=== PATIENT | female | born 1975 | race Caucasian/White ===

== ENCOUNTER 2016-11-03 11:52 | Inpatient (IN) | payer MEDICARE, MEDICAID ==
[~2016-11-03] VITALS: Ht 165.1 cm; Wt 69.9 kg
[~2016-11-03 11:52] MED LIST: DIVA500T35 PO; GABA-531 PO; RISP2 PO; RISPC50 IM
[2016-11-03 12:39] VITALS: BP 143/86
[2016-11-03] MEDS ORDERED: INFLUENZA VIRUS VACCINE QVS 2016-17 (3YR+)/PF 60 MCG/0.5 ML SYRINGE IM ONE (12:45)
[2016-11-03] MEDS ORDERED: LORazepam 1 MG TABLET PO PRN (13:30)
[2016-11-03] MEDS ORDERED: ZOLPIDEM TARTRATE 10 MG TABLET PO PRN (13:30)
[2016-11-03] MEDS: GABAPENTIN 300 MG CAPSULE PO SCH ×2 (14:25→16:28)
[2016-11-03 15:15] VITALS: BP 121/73
[2016-11-03] MEDS: RisperiDONE 2 MG TABLET PO SCH (20:12)
[2016-11-03] MEDS ORDERED: DIVALPROEX SODIUM 500 MG DR TABLET PO SCH (21:00)
[2016-11-04] MEDS: GABAPENTIN 300 MG CAPSULE PO SCH ×3 (08:05→16:43)
[2016-11-04] MEDS: RisperiDONE 2 MG TABLET PO SCH (08:05)
[2016-11-04 09:13] LABS: BASOPHILS % (AUTO) 0.3 % (0.0-2.0); EOSINOPHILS % (AUTO) 1.1 % (1.0-6.0); HEMATOCRIT 40.6 % (36-46); HEMOGLOBIN 13.3 g/dL (12.0-16.0); LYMPHOCYTES # (AUTO) 2.3 K/uL (1.0-4.8); LYMPHOCYTES % (AUTO) 27.9 % (22.0-44.0); MEAN CORPUSCULAR HEMOGLOBIN 32.7 pg (26.0-34.0); MEAN CORPUSCULAR HGB CONC 32.8 G/dL (31.0-37.0); MEAN CORPUSCULAR VOLUME 100 fL (80-100); MONOCYTES # (AUTO) 0.6 K/uL (0.1-1.0); MONOCYTES % (AUTO) 6.9 % (2.0-9.0); NEUTROPHILS # (AUTO) 5.3 K/uL (1.8-7.7); NEUTROPHILS % (AUTO) 63.8 % (40.0-70.0); PLATELET COUNT (AUTO) 286 K/uL (150-450); RED BLOOD CELL COUNT(AUTO) 4.07 MIL/uL (4.00-5.20); RED CELL DISTRIBUTION WIDTH 12.7 % (11.5-14.5); WHITE BLOOD COUNT (AUTO) 8.3 K/uL (4.5-11.0)
[2016-11-04 09:52] LABS: HEMOGLOBIN A1C 5.5 % (4.5-6.2)
[2016-11-04 10:50] LABS: ALANINE AMINOTRANSFERASE 24 U/L (12-78); ALBUMIN 3.5 g/dL (3.4-5.0); ANION GAP 11 mmol/L (8-16); ASPARTATE AMINOTRANSFERASE 16 U/L (15-37); BILIRUBIN,TOTAL 0.4 mg/dL (0.1-1.0); CALCIUM, TOTAL 9.4 mg/dL (8.8-10.5); CARBON DIOXIDE 25 mmol/L (22-29); CHLORIDE 105 mmol/L (98-107); CHOL/HDL RATIO 4.3 (3.9-5.7); CREATININE 0.78 mg/dL (0.60-1.30); GLOMERULAR FILTR. RATE CALC > 60 mL/min (>60); POTASSIUM 3.7 mmol/L (3.5-5.1); SODIUM SERUM 141 mmol/L (136-145); THYROID STIMULATING HORMONE 1.41 uIU/mL (0.36-3.74); TOTAL PROTEIN, SERUM 7.2 g/dL (6.4-8.2); UREA NITROGEN, BLOOD 15 mg/dL (7-18)
[2016-11-04 16:30] VITALS: BP 109/68
[2016-11-04] MEDS ORDERED: IBUPROFEN 400 MG TABLET PO PRN (18:00)
[2016-11-04] MEDS ORDERED: ACETAMINOPHEN 325 MG TABLET PO PRN (18:00)
[2016-11-04] MEDS: RisperiDONE 3 MG TABLET PO SCH (20:30)
[2016-11-05 05:50] VITALS: BP 119/76
[2016-11-05] MEDS: LEVOTHYROXINE SODIUM 25 MCG TABLET PO SCH (06:32)
[2016-11-05] MEDS: RisperiDONE 3 MG TABLET PO SCH ×2 (08:14→20:19)
[2016-11-05] MEDS: GABAPENTIN 300 MG CAPSULE PO SCH ×3 (08:14→16:32)
[2016-11-05 08:28] VITALS: BP 100/60
[2016-11-05 16:16] VITALS: BP 109/68
[2016-11-06] MEDS: LEVOTHYROXINE SODIUM 25 MCG TABLET PO SCH (06:46)
[2016-11-06 07:07] VITALS: BP 118/75
[2016-11-06] MEDS: RisperiDONE 3 MG TABLET PO SCH ×2 (08:17→20:17)
[2016-11-06] MEDS: GABAPENTIN 300 MG CAPSULE PO SCH ×3 (08:18→16:19)
[2016-11-07] MEDS: LEVOTHYROXINE SODIUM 25 MCG TABLET PO SCH (06:16)
[2016-11-07 09:06] VITALS: BP 84/56
[2016-11-07] MEDS: GABAPENTIN 300 MG CAPSULE PO SCH ×3 (09:58→16:27)
[2016-11-07] MEDS: RisperiDONE 3 MG TABLET PO SCH ×2 (09:59→20:46)
[2016-11-07 19:45] VITALS: BP 104/70
[2016-11-08] MEDS: LEVOTHYROXINE SODIUM 25 MCG TABLET PO SCH (06:30)
[2016-11-08] MEDS: GABAPENTIN 300 MG CAPSULE PO SCH ×3 (08:10→16:02)
[2016-11-08] MEDS: RisperiDONE 3 MG TABLET PO SCH ×2 (08:10→20:21)
[2016-11-09] MEDS: LEVOTHYROXINE SODIUM 25 MCG TABLET PO SCH (06:30)
[2016-11-09] MEDS: RisperiDONE 3 MG TABLET PO SCH (08:45)
[2016-11-09] MEDS: GABAPENTIN 300 MG CAPSULE PO SCH ×3 (08:45→16:11)
[2016-11-09] MEDS ORDERED: RisperiDONE MICROSPHERES 50 MG/2 ML SYRINGE IM ONE (09:00)
[2016-11-09 16:04] VITALS: BP 108/60
[2016-11-10] MEDS: LEVOTHYROXINE SODIUM 25 MCG TABLET PO SCH (06:15)
[2016-11-10] MEDS ORDERED: RISPC50 IM (08:00)
[2016-11-10] MEDS ORDERED: LEVO25TA4 PO (08:00)
[2016-11-10] MEDS: GABAPENTIN 300 MG CAPSULE PO SCH (08:12)
[2016-11-10 08:57] VITALS: BP 104/62
== END 2016-11-10 09:40 | disposition home or self-care (01) | DRG 885 ==
LOC: EDSTATUS 12:59 → B3A 13:39
DX: F20.0 Paranoid schizophrenia (principal); E78.5 Hyperlipidemia, unspecified; E03.9 Hypothyroidism, unspecified; E11.9 Type 2 diabetes mellitus without complications; F17.200 Nicotine dependence, unspecified, uncomplicated; Z28.21 Immunization not carried out because of patient refusal
CPT/HCPCS: 82948; 83036; 84439; 84443; J2794

== ENCOUNTER 2016-11-23 10:58 | Inpatient (IN) | payer MEDICARE, MEDICAID ==
[~2016-11-23] VITALS: Ht 165.1 cm; Wt 67.2 kg
[2016-11-23 10:34] VITALS: BP 138/89
[~2016-11-23 10:58] MED LIST changes: -DIVA500T35 PO; +LEVO25TA4 PO; -RISP2 PO
[2016-11-23 11:00] VITALS: BP 138/89
[2016-11-23] MEDS ORDERED: LORazepam 2 MG TABLET PO PRN (11:00)
[2016-11-23] MEDS ORDERED: INFLUENZA VIRUS VACCINE QVS 2016-17 (3YR+)/PF 60 MCG/0.5 ML SYRINGE IM ONE (11:00)
[2016-11-23] MEDS ORDERED: ZOLPIDEM TARTRATE 10 MG TABLET PO PRN (11:00)
[2016-11-23] MEDS ORDERED: HALOPERIDOL 5 MG TABLET PO PRN (11:00)
[2016-11-23] MEDS ORDERED: PNEUMOCOCCAL VACCINE POLYVALENT 0.5 ML VIAL [PPSV23] IM ONE (11:00)
[2016-11-23] MEDS ORDERED: LIDOCAINE HCL/PF 1% 2 ML VIAL IM ONE (14:15)
[2016-11-23] MEDS ORDERED: SULFAMETHOX/TRIMETH DS 800-160 MG/TABLET PO ONE (14:15)
[2016-11-23] MEDS ORDERED: CefTRIAXone SODIUM 1 GM/VIAL IM ONE (14:15)
[2016-11-23] MEDS ORDERED: GABAPENTIN 300 MG CAPSULE PO SCH (16:00)
[2016-11-23 16:04] VITALS: BP 120/75
[2016-11-23 16:56] LABS: GLUCOSE,POINT OF CARE 120 MG/DL (70-110)
[2016-11-23] MEDS: RisperiDONE 2 MG TABLET PO SCH (17:43)
[2016-11-23] MEDS: GABAPENTIN 300 MG CAPSULE PO SCH (17:44)
[2016-11-23] MEDS ORDERED: RisperiDONE 2 MG TABLET PO SCH (21:00)
[2016-11-24] MEDS ORDERED: ACETAMINOPHEN 325 MG TABLET PO PRN (06:00)
[2016-11-24] MEDS ORDERED: IBUPROFEN 400 MG TABLET PO PRN (06:00)
[2016-11-24] MEDS ORDERED: LEVOTHYROXINE SODIUM 25 MCG TABLET PO SCH (06:30)
[2016-11-24] MEDS: LEVOTHYROXINE SODIUM 25 MCG TABLET PO SCH (07:22)
[2016-11-24] MEDS: GABAPENTIN 300 MG CAPSULE PO SCH ×3 (08:43→17:00)
[2016-11-24] MEDS: RisperiDONE 2 MG TABLET PO SCH ×2 (08:44→17:00)
[2016-11-24 16:17] VITALS: BP 109/71
[2016-11-24] MEDS: BACITRACIN 28.4 GM OINTMENT TP SCH (19:37)
[2016-11-25] MEDS: LEVOTHYROXINE SODIUM 25 MCG TABLET PO SCH (06:30)
[2016-11-25 08:02] VITALS: BP 115/60
[2016-11-25] MEDS ORDERED: BACITRACIN 28.4 GM OINTMENT TP SCH (09:00)
[2016-11-25] MEDS: GABAPENTIN 300 MG CAPSULE PO SCH ×3 (09:24→16:26)
[2016-11-25] MEDS: RisperiDONE 2 MG TABLET PO SCH ×2 (09:24→16:26)
[2016-11-25] MEDS: BACITRACIN 28.4 GM OINTMENT TP SCH ×2 (09:25→16:26)
[2016-11-25 09:39] LABS: BASOPHILS % (AUTO) 0.2 % (0.0-2.0); EOSINOPHILS % (AUTO) 0.6 % (1.0-6.0); HEMATOCRIT 39.8 % (36-46); HEMOGLOBIN 13.2 g/dL (12.0-16.0); LYMPHOCYTES # (AUTO) 1.9 K/uL (1.0-4.8); LYMPHOCYTES % (AUTO) 18.3 % (22.0-44.0); MEAN CORPUSCULAR HEMOGLOBIN 32.9 pg (26.0-34.0); MEAN CORPUSCULAR HGB CONC 33.3 G/dL (31.0-37.0); MEAN CORPUSCULAR VOLUME 99 fL (80-100); MONOCYTES # (AUTO) 0.5 K/uL (0.1-1.0); MONOCYTES % (AUTO) 4.5 % (2.0-9.0); NEUTROPHILS % (AUTO) 76.4 % (40.0-70.0); PLATELET COUNT (AUTO) 309 K/uL (150-450); RED BLOOD CELL COUNT(AUTO) 4.02 MIL/uL (4.00-5.20); RED CELL DISTRIBUTION WIDTH 12.5 % (11.5-14.5); WHITE BLOOD COUNT (AUTO) 10.4 K/uL (4.5-11.0)
[2016-11-25 10:01] LABS: ALANINE AMINOTRANSFERASE 26 U/L (12-78); ALBUMIN 3.7 g/dL (3.4-5.0); ANION GAP 9 mmol/L (8-16); ASPARTATE AMINOTRANSFERASE 14 U/L (15-37); BILIRUBIN,TOTAL 0.4 mg/dL (0.1-1.0); CALCIUM, TOTAL 9.4 mg/dL (8.8-10.5); CARBON DIOXIDE 27 mmol/L (22-29); CHLORIDE 103 mmol/L (98-107); CHOL/HDL RATIO 4.7 (3.9-5.7); CREATININE 0.73 mg/dL (0.60-1.30); GLOMERULAR FILTR. RATE CALC > 60 mL/min (>60); POTASSIUM 4.7 mmol/L (3.5-5.1); SODIUM SERUM 139 mmol/L (136-145); THYROID STIMULATING HORMONE 0.32 uIU/mL (0.36-3.74); TOTAL PROTEIN, SERUM 7.4 g/dL (6.4-8.2); UREA NITROGEN, BLOOD 10 mg/dL (7-18)
[2016-11-25 10:17] LABS: HEMOGLOBIN A1C 5.5 % (4.5-6.2)
[2016-11-25 16:13] VITALS: BP 114/74
[2016-11-25] MEDS: NEOMYCIN/BACITRACIN/POLYMYXIN B 30 GM OINTMENT TP SCH (17:00)
[2016-11-25] MEDS: CEPHALEXIN MONOHYDRATE 500 MG CAPSULE PO SCH (17:24)
[2016-11-26] MEDS: LEVOTHYROXINE SODIUM 25 MCG TABLET PO SCH (06:11)
[2016-11-26] MEDS: GABAPENTIN 300 MG CAPSULE PO SCH ×3 (08:06→16:25)
[2016-11-26] MEDS: NEOMYCIN/BACITRACIN/POLYMYXIN B 30 GM OINTMENT TP SCH ×3 (08:07→16:26)
[2016-11-26] MEDS: BACITRACIN 28.4 GM OINTMENT TP SCH ×3 (08:07→16:26)
[2016-11-26] MEDS: RisperiDONE 2 MG TABLET PO SCH ×2 (08:07→16:25)
[2016-11-26] MEDS: CEPHALEXIN MONOHYDRATE 500 MG CAPSULE PO SCH ×3 (08:27→16:26)
[2016-11-26 16:22] VITALS: BP 109/68
[2016-11-27] MEDS: LEVOTHYROXINE SODIUM 25 MCG TABLET PO SCH (06:10)
[2016-11-27 06:29] VITALS: BP 115/75
[2016-11-27 08:02] VITALS: BP 112/62
[2016-11-27 08:30] VITALS: BP 112/62
[2016-11-27] MEDS: CEPHALEXIN MONOHYDRATE 500 MG CAPSULE PO SCH ×3 (09:26→16:02)
[2016-11-27] MEDS: GABAPENTIN 300 MG CAPSULE PO SCH ×3 (09:26→16:02)
[2016-11-27] MEDS: RisperiDONE 2 MG TABLET PO SCH ×2 (09:26→16:02)
[2016-11-27] MEDS: BACITRACIN 28.4 GM OINTMENT TP SCH ×2 (09:26→16:02)
[2016-11-27] MEDS: NEOMYCIN/BACITRACIN/POLYMYXIN B 30 GM OINTMENT TP SCH ×2 (09:26→16:02)
[2016-11-27] MEDS: RisperiDONE MICROSPHERES 50 MG/2 ML SYRINGE IM SCH (10:34)
[2016-11-27] MEDS: MULTIVITAMINS WITH MINERALS, THERAPEUTIC TABLET PO SCH (14:40)
[2016-11-27 16:09] VITALS: BP 127/78
[2016-11-28 00:49] VITALS: BP 104/70
[2016-11-28] MEDS: LEVOTHYROXINE SODIUM 25 MCG TABLET PO SCH (06:47)
[2016-11-28] MEDS: RisperiDONE 2 MG TABLET PO SCH ×2 (08:37→16:09)
[2016-11-28] MEDS: BACITRACIN 28.4 GM OINTMENT TP SCH ×2 (08:37→16:09)
[2016-11-28] MEDS: MULTIVITAMINS WITH MINERALS, THERAPEUTIC TABLET PO SCH (08:37)
[2016-11-28] MEDS: GABAPENTIN 300 MG CAPSULE PO SCH ×3 (08:37→16:09)
[2016-11-28] MEDS: CEPHALEXIN MONOHYDRATE 500 MG CAPSULE PO SCH ×3 (08:37→16:09)
[2016-11-28] MEDS: NEOMYCIN/BACITRACIN/POLYMYXIN B 30 GM OINTMENT TP SCH ×2 (08:38→16:09)
[2016-11-28 16:22] VITALS: BP 93/54
[2016-11-29] MEDS: LEVOTHYROXINE SODIUM 25 MCG TABLET PO SCH (06:12)
[2016-11-29 06:25] VITALS: BP 94/50
[2016-11-29] MEDS: MULTIVITAMINS WITH MINERALS, THERAPEUTIC TABLET PO SCH (08:39)
[2016-11-29] MEDS: CEPHALEXIN MONOHYDRATE 500 MG CAPSULE PO SCH ×3 (08:39→16:03)
[2016-11-29] MEDS: RisperiDONE 2 MG TABLET PO SCH ×2 (08:39→16:03)
[2016-11-29] MEDS: GABAPENTIN 300 MG CAPSULE PO SCH ×3 (08:39→16:03)
[2016-11-29] MEDS: BACITRACIN 28.4 GM OINTMENT TP SCH ×2 (08:41→16:03)
[2016-11-29] MEDS: NEOMYCIN/BACITRACIN/POLYMYXIN B 30 GM OINTMENT TP SCH ×2 (08:41→16:03)
[2016-11-29 16:08] VITALS: BP 95/59
[2016-11-30] MEDS: LEVOTHYROXINE SODIUM 25 MCG TABLET PO SCH (06:09)
[2016-11-30 08:10] VITALS: BP 109/70
[2016-11-30] MEDS: BACITRACIN 28.4 GM OINTMENT TP SCH ×2 (09:34→16:10)
[2016-11-30] MEDS: MULTIVITAMINS WITH MINERALS, THERAPEUTIC TABLET PO SCH (09:34)
[2016-11-30] MEDS: GABAPENTIN 300 MG CAPSULE PO SCH ×3 (09:34→16:10)
[2016-11-30] MEDS: CEPHALEXIN MONOHYDRATE 500 MG CAPSULE PO SCH ×3 (09:34→16:10)
[2016-11-30 16:30] VITALS: BP 104/58
[2016-12-01] MEDS: LEVOTHYROXINE SODIUM 25 MCG TABLET PO SCH (06:17)
[2016-12-01] MEDS: GABAPENTIN 300 MG CAPSULE PO SCH ×3 (08:18→16:10)
[2016-12-01] MEDS: CEPHALEXIN MONOHYDRATE 500 MG CAPSULE PO SCH ×3 (08:18→16:09)
[2016-12-01] MEDS: MULTIVITAMINS WITH MINERALS, THERAPEUTIC TABLET PO SCH (08:18)
[2016-12-01] MEDS: BACITRACIN 28.4 GM OINTMENT TP SCH ×2 (08:19→16:30)
[2016-12-01 08:34] VITALS: BP 107/59
[2016-12-02] MEDS: LEVOTHYROXINE SODIUM 25 MCG TABLET PO SCH (06:30)
[2016-12-02] MEDS: MULTIVITAMINS WITH MINERALS, THERAPEUTIC TABLET PO SCH (08:54)
[2016-12-02] MEDS: CEPHALEXIN MONOHYDRATE 500 MG CAPSULE PO SCH ×2 (08:54→12:47)
[2016-12-02] MEDS: GABAPENTIN 300 MG CAPSULE PO SCH ×3 (08:54→17:03)
[2016-12-02] MEDS: BACITRACIN 28.4 GM OINTMENT TP SCH ×2 (08:55→17:03)
[2016-12-03] MEDS: LEVOTHYROXINE SODIUM 25 MCG TABLET PO SCH (06:03)
[2016-12-03] MEDS: GABAPENTIN 300 MG CAPSULE PO SCH ×3 (08:06→16:26)
[2016-12-03] MEDS: BACITRACIN 28.4 GM OINTMENT TP SCH ×2 (08:06→17:03)
[2016-12-03] MEDS: MULTIVITAMINS WITH MINERALS, THERAPEUTIC TABLET PO SCH (08:06)
[2016-12-04] MEDS: LEVOTHYROXINE SODIUM 25 MCG TABLET PO SCH (06:21)
[2016-12-04] MEDS: GABAPENTIN 300 MG CAPSULE PO SCH ×3 (08:14→16:05)
[2016-12-04] MEDS: BACITRACIN 28.4 GM OINTMENT TP SCH ×2 (08:14→16:05)
[2016-12-04] MEDS: MULTIVITAMINS WITH MINERALS, THERAPEUTIC TABLET PO SCH (08:15)
[2016-12-05] MEDS: LEVOTHYROXINE SODIUM 25 MCG TABLET PO SCH (06:39)
[2016-12-05] MEDS: GABAPENTIN 300 MG CAPSULE PO SCH ×3 (08:01→16:23)
[2016-12-05] MEDS: MULTIVITAMINS WITH MINERALS, THERAPEUTIC TABLET PO SCH (08:01)
[2016-12-05] MEDS: BACITRACIN 28.4 GM OINTMENT TP SCH ×2 (08:02→16:23)
[2016-12-06] MEDS: LEVOTHYROXINE SODIUM 25 MCG TABLET PO SCH (06:06)
[2016-12-06] MEDS: MULTIVITAMINS WITH MINERALS, THERAPEUTIC TABLET PO SCH (08:14)
[2016-12-06] MEDS: BACITRACIN 28.4 GM OINTMENT TP SCH ×2 (08:14→16:27)
[2016-12-06] MEDS: GABAPENTIN 300 MG CAPSULE PO SCH ×3 (08:14→16:27)
[2016-12-07] MEDS: LEVOTHYROXINE SODIUM 25 MCG TABLET PO SCH (06:34)
[2016-12-07] MEDS: MULTIVITAMINS WITH MINERALS, THERAPEUTIC TABLET PO SCH (08:12)
[2016-12-07] MEDS: GABAPENTIN 300 MG CAPSULE PO SCH ×3 (08:12→16:32)
[2016-12-07] MEDS: BACITRACIN 28.4 GM OINTMENT TP SCH ×2 (08:13→16:32)
[2016-12-08] MEDS: LEVOTHYROXINE SODIUM 25 MCG TABLET PO SCH (06:26)
[2016-12-08] MEDS: MULTIVITAMINS WITH MINERALS, THERAPEUTIC TABLET PO SCH (08:18)
[2016-12-08] MEDS: GABAPENTIN 300 MG CAPSULE PO SCH ×3 (08:18→16:06)
[2016-12-08] MEDS: BACITRACIN 28.4 GM OINTMENT TP SCH ×2 (08:18→16:06)
[2016-12-08] MEDS ORDERED: LORazepam 2 MG/ML VIAL IM ONE (17:30)
[2016-12-08] MEDS ORDERED: DiphenhydrAMINE HCL 50 MG/ML VIAL IM ONE (17:30)
[2016-12-08] MEDS ORDERED: HALOPERIDOL LACTATE 5 MG/ML VIAL IM ONE (17:30)
[2016-12-08] MEDS ORDERED: HALOPERIDOL LACTATE 5 MG/ML VIAL ONE (17:31)
[2016-12-08] MEDS ORDERED: LORazepam 2 MG/ML VIAL ONE (17:31)
[2016-12-08] MEDS ORDERED: DiphenhydrAMINE HCL 50 MG/ML VIAL ONE (17:31)
[2016-12-09] MEDS: LEVOTHYROXINE SODIUM 25 MCG TABLET PO SCH (06:19)
[2016-12-09] MEDS: MULTIVITAMINS WITH MINERALS, THERAPEUTIC TABLET PO SCH (08:38)
[2016-12-09] MEDS: BACITRACIN 28.4 GM OINTMENT TP SCH ×2 (08:38→16:10)
[2016-12-09] MEDS: GABAPENTIN 300 MG CAPSULE PO SCH ×3 (08:38→16:10)
[2016-12-09 08:46] VITALS: BP 100/72
[2016-12-09 16:00] VITALS: BP 113/69
[2016-12-10] MEDS: LEVOTHYROXINE SODIUM 25 MCG TABLET PO SCH (06:11)
[2016-12-10 08:37] VITALS: BP 106/71
[2016-12-10] MEDS: BACITRACIN 28.4 GM OINTMENT TP SCH ×2 (09:43→16:14)
[2016-12-10] MEDS: MULTIVITAMINS WITH MINERALS, THERAPEUTIC TABLET PO SCH (09:43)
[2016-12-10] MEDS: GABAPENTIN 300 MG CAPSULE PO SCH ×3 (09:43→16:14)
[2016-12-10] MEDS: RisperiDONE MICROSPHERES 50 MG/2 ML SYRINGE IM SCH (09:44)
[2016-12-11 03:01] VITALS: BP 112/87
[2016-12-11] MEDS: LEVOTHYROXINE SODIUM 25 MCG TABLET PO SCH (06:19)
[2016-12-11 08:48] VITALS: BP 109/73
[2016-12-11] MEDS: GABAPENTIN 300 MG CAPSULE PO SCH ×3 (09:55→17:14)
[2016-12-11] MEDS: BACITRACIN 28.4 GM OINTMENT TP SCH ×2 (09:55→17:14)
[2016-12-11] MEDS: MULTIVITAMINS WITH MINERALS, THERAPEUTIC TABLET PO SCH (09:55)
[2016-12-11 16:20] VITALS: BP 115/90
[2016-12-12 02:10] VITALS: BP 118/87
[2016-12-12] MEDS: LEVOTHYROXINE SODIUM 25 MCG TABLET PO SCH (06:09)
[2016-12-12] MEDS: MULTIVITAMINS WITH MINERALS, THERAPEUTIC TABLET PO SCH (08:09)
[2016-12-12] MEDS: BACITRACIN 28.4 GM OINTMENT TP SCH ×2 (08:09→16:20)
[2016-12-12] MEDS: GABAPENTIN 300 MG CAPSULE PO SCH ×3 (08:09→16:20)
[2016-12-13 03:17] VITALS: BP 121/74
[2016-12-13] MEDS: LEVOTHYROXINE SODIUM 25 MCG TABLET PO SCH (06:52)
[2016-12-13] MEDS: GABAPENTIN 300 MG CAPSULE PO SCH ×3 (08:34→16:05)
[2016-12-13] MEDS: BACITRACIN 28.4 GM OINTMENT TP SCH ×2 (08:34→16:05)
[2016-12-13] MEDS: MULTIVITAMINS WITH MINERALS, THERAPEUTIC TABLET PO SCH (08:34)
[2016-12-14] MEDS: LEVOTHYROXINE SODIUM 25 MCG TABLET PO SCH (06:38)
[2016-12-14 06:47] VITALS: BP 115/68
[2016-12-14] MEDS: GABAPENTIN 300 MG CAPSULE PO SCH ×3 (08:34→16:42)
[2016-12-14] MEDS: MULTIVITAMINS WITH MINERALS, THERAPEUTIC TABLET PO SCH (08:34)
[2016-12-14] MEDS: BACITRACIN 28.4 GM OINTMENT TP SCH ×2 (08:35→16:42)
[2016-12-15 05:56] VITALS: BP 116/72
[2016-12-15] MEDS: LEVOTHYROXINE SODIUM 25 MCG TABLET PO SCH (06:31)
[2016-12-15] MEDS: MULTIVITAMINS WITH MINERALS, THERAPEUTIC TABLET PO SCH (08:49)
[2016-12-15] MEDS: GABAPENTIN 300 MG CAPSULE PO SCH ×3 (08:50→16:23)
[2016-12-15] MEDS: BACITRACIN 28.4 GM OINTMENT TP SCH ×2 (08:50→16:23)
[2016-12-16] MEDS: LEVOTHYROXINE SODIUM 25 MCG TABLET PO SCH (06:23)
[2016-12-16] MEDS: MULTIVITAMINS WITH MINERALS, THERAPEUTIC TABLET PO SCH (08:14)
[2016-12-16] MEDS: GABAPENTIN 300 MG CAPSULE PO SCH ×3 (08:14→16:19)
[2016-12-16] MEDS: BACITRACIN 28.4 GM OINTMENT TP SCH ×2 (08:14→16:19)
[2016-12-17 04:26] VITALS: BP 131/71
[2016-12-17] MEDS: LEVOTHYROXINE SODIUM 25 MCG TABLET PO SCH (06:24)
[2016-12-17] MEDS: GABAPENTIN 300 MG CAPSULE PO SCH ×3 (08:09→17:01)
[2016-12-17] MEDS: BACITRACIN 28.4 GM OINTMENT TP SCH ×2 (08:09→17:01)
[2016-12-17] MEDS: MULTIVITAMINS WITH MINERALS, THERAPEUTIC TABLET PO SCH (08:10)
[2016-12-17] MEDS ORDERED: MAG HYDROX/AL HYDROX/SIMETH 30 ML SUSP UDCUP PO PRN (11:30)
[2016-12-18 01:28] VITALS: BP 127/75
[2016-12-18] MEDS: LEVOTHYROXINE SODIUM 25 MCG TABLET PO SCH (06:22)
[2016-12-18] MEDS: GABAPENTIN 300 MG CAPSULE PO SCH ×3 (08:07→16:35)
[2016-12-18] MEDS: MULTIVITAMINS WITH MINERALS, THERAPEUTIC TABLET PO SCH (08:08)
[2016-12-18] MEDS: BACITRACIN 28.4 GM OINTMENT TP SCH ×2 (08:08→16:35)
[2016-12-19] MEDS: LEVOTHYROXINE SODIUM 25 MCG TABLET PO SCH (06:37)
[2016-12-19] MEDS: BACITRACIN 28.4 GM OINTMENT TP SCH (09:15)
[2016-12-19] MEDS: MULTIVITAMINS WITH MINERALS, THERAPEUTIC TABLET PO SCH (09:16)
[2016-12-19] MEDS: GABAPENTIN 300 MG CAPSULE PO SCH ×2 (09:16→14:21)
[2016-12-19] MEDS ORDERED: BACI30OI6 TP (12:22)
[2016-12-19] MEDS ORDERED: LEVO25TA9 PO (12:22)
[2016-12-19] MEDS ORDERED: MULT-29 PO (12:22)
== END 2016-12-19 13:15 | disposition short-term general hospital (02) | DRG 885 ==
LOC: EDSTATUS 10:58 → EMS 11:39 → B3A 15:43
DX: F20.0 Paranoid schizophrenia (principal); E03.9 Hypothyroidism, unspecified; E11.9 Type 2 diabetes mellitus without complications; S81.802A Unspecified open wound, left lower leg, initial encounter; I95.9 Hypotension, unspecified; F17.210 Nicotine dependence, cigarettes, uncomplicated; E78.5 Hyperlipidemia, unspecified; X58.XXXA Exposure to other specified factors, initial encounter; I10 Essential (primary) hypertension; Z79.899 Other long term (current) drug therapy; Z88.8 Allergy status to other drugs, medicaments and biological substances; Y93.89 Activity, other specified; Y92.89 Other specified places as the place of occurrence of the external cause; Y99.8 Other external cause status
CPT/HCPCS: 82962; 83036; 84443; 87081; 90471; 96374; 99285; J0696; J1200; J1630; J2060; J2794; J3490

== ENCOUNTER 2016-12-19 15:05 | Inpatient (IN) | payer MEDICARE, MEDICAID ==
[~2016-12-19] VITALS: Ht 165.1 cm; Wt 67.8 kg
[~2016-12-19 15:05] MED LIST changes: +BACI30OI6 TP; +LEVO25TA9 PO; +MULT-29 PO
[2016-12-19] MEDS ORDERED: ZOLPIDEM TARTRATE 10 MG TABLET PO PRN (15:30)
[2016-12-19] MEDS: GABAPENTIN 300 MG CAPSULE PO SCH ×2 (15:39→17:04)
[2016-12-19 16:11] VITALS: BP 110/70
[2016-12-19] MEDS ORDERED: PNEUMOCOCCAL VACCINE POLYVALENT 0.5 ML VIAL [PPSV23] IM ONE (16:30)
[2016-12-19 17:12] LABS: GLUCOSE,POINT OF CARE 106 MG/DL (70-110)
[2016-12-20] MEDS ORDERED: INFLUENZA VIRUS VACCINE QVS 2016-17 (3YR+)/PF 60 MCG/0.5 ML SYRINGE IM ONE (01:30)
[2016-12-20 03:00] VITALS: BP 105/73
[2016-12-20] MEDS: LEVOTHYROXINE SODIUM 25 MCG TABLET PO SCH (06:43)
[2016-12-20] MEDS: GABAPENTIN 300 MG CAPSULE PO SCH ×3 (08:28→16:41)
[2016-12-20] MEDS: MULTIVITAMINS WITH MINERALS, THERAPEUTIC TABLET PO SCH (08:28)
[2016-12-20 16:12] VITALS: BP 109/73
[2016-12-21] MEDS: LEVOTHYROXINE SODIUM 25 MCG TABLET PO SCH (05:47)
[2016-12-21] MEDS: GABAPENTIN 300 MG CAPSULE PO SCH ×3 (08:19→16:35)
[2016-12-21] MEDS: MULTIVITAMINS WITH MINERALS, THERAPEUTIC TABLET PO SCH (08:19)
[2016-12-21] MEDS: LORazepam 2 MG TABLET PO PRN (08:57)
[2016-12-21] MEDS ORDERED: ACETAMINOPHEN 325 MG TABLET PO PRN (23:15)
[2016-12-22] MEDS: LEVOTHYROXINE SODIUM 25 MCG TABLET PO SCH (06:14)
[2016-12-22] MEDS ORDERED: LEVOTHYROXINE SODIUM 25 MCG TABLET PO SCH (06:30)
[2016-12-22] MEDS: GABAPENTIN 300 MG CAPSULE PO SCH ×3 (08:16→16:40)
[2016-12-22] MEDS: MULTIVITAMINS WITH MINERALS, THERAPEUTIC TABLET PO SCH (08:16)
[2016-12-22] MEDS: NICOTINE 14 MG/24 HOUR PATCH TD SCH (08:17)
[2016-12-22 08:53] LABS: BASOPHILS % (AUTO) 0.4 % (0.0-2.0); EOSINOPHILS % (AUTO) 0.8 % (1.0-6.0); HEMATOCRIT 42.1 % (36-46); HEMOGLOBIN 13.9 g/dL (12.0-16.0); LYMPHOCYTES # (AUTO) 2.3 K/uL (1.0-4.8); LYMPHOCYTES % (AUTO) 26.5 % (22.0-44.0); MEAN CORPUSCULAR HEMOGLOBIN 32.6 pg (26.0-34.0); MEAN CORPUSCULAR HGB CONC 33.1 G/dL (31.0-37.0); MEAN CORPUSCULAR VOLUME 99 fL (80-100); MONOCYTES # (AUTO) 0.5 K/uL (0.1-1.0); MONOCYTES % (AUTO) 5.6 % (2.0-9.0); NEUTROPHILS # (AUTO) 5.9 K/uL (1.8-7.7); NEUTROPHILS % (AUTO) 66.7 % (40.0-70.0); PLATELET COUNT (AUTO) 256 K/uL (150-450); RED BLOOD CELL COUNT(AUTO) 4.27 MIL/uL (4.00-5.20); RED CELL DISTRIBUTION WIDTH 12.5 % (11.5-14.5); WHITE BLOOD COUNT (AUTO) 8.8 K/uL (4.5-11.0)
[2016-12-22 09:59] LABS: ALANINE AMINOTRANSFERASE 36 U/L (12-78); ALBUMIN 4.2 g/dL (3.4-5.0); ANION GAP 11 mmol/L (8-16); ASPARTATE AMINOTRANSFERASE 19 U/L (15-37); BILIRUBIN,TOTAL 0.8 mg/dL (0.1-1.0); CALCIUM, TOTAL 8.7 mg/dL (8.8-10.5); CARBON DIOXIDE 26 mmol/L (22-29); CHLORIDE 102 mmol/L (98-107); CHOL/HDL RATIO 3.4 (3.9-5.7); CREATININE 0.59 mg/dL (0.60-1.30); GLOMERULAR FILTR. RATE CALC > 60 mL/min (>60); POTASSIUM 4.6 mmol/L (3.5-5.1); SODIUM SERUM 139 mmol/L (136-145); THYROID STIMULATING HORMONE 1.74 uIU/mL (0.36-3.74); TOTAL PROTEIN, SERUM 7.5 g/dL (6.4-8.2); UREA NITROGEN, BLOOD 9 mg/dL (7-18)
[2016-12-23] MEDS: LEVOTHYROXINE SODIUM 25 MCG TABLET PO SCH (06:35)
[2016-12-23 08:00] VITALS: BP 104/66
[2016-12-23] MEDS: MULTIVITAMINS WITH MINERALS, THERAPEUTIC TABLET PO SCH (08:11)
[2016-12-23] MEDS: GABAPENTIN 300 MG CAPSULE PO SCH ×3 (08:11→16:37)
[2016-12-23] MEDS: NICOTINE 14 MG/24 HOUR PATCH TD SCH (08:14)
[2016-12-24] MEDS: LEVOTHYROXINE SODIUM 25 MCG TABLET PO SCH (06:03)
[2016-12-24] MEDS: MULTIVITAMINS WITH MINERALS, THERAPEUTIC TABLET PO SCH (08:10)
[2016-12-24] MEDS: GABAPENTIN 300 MG CAPSULE PO SCH ×3 (08:10→16:36)
[2016-12-24] MEDS: NICOTINE 14 MG/24 HOUR PATCH TD SCH (08:15)
[2016-12-24 09:45] VITALS: BP 110/72
[2016-12-24] MEDS: RisperiDONE MICROSPHERES 50 MG/2 ML SYRINGE IM SCH (09:47)
[2016-12-24 16:10] VITALS: BP 119/63
[2016-12-25 04:40] VITALS: BP 112/69
[2016-12-25] MEDS: LEVOTHYROXINE SODIUM 25 MCG TABLET PO SCH (06:35)
[2016-12-25] MEDS: MULTIVITAMINS WITH MINERALS, THERAPEUTIC TABLET PO SCH (08:09)
[2016-12-25] MEDS: GABAPENTIN 300 MG CAPSULE PO SCH ×3 (08:09→16:43)
[2016-12-25] MEDS: NICOTINE 14 MG/24 HOUR PATCH TD SCH (08:09)
[2016-12-25] MEDS: LORazepam 2 MG TABLET PO PRN (12:40)
[2016-12-25] MEDS: HALOPERIDOL 5 MG TABLET PO PRN (12:51)
[2016-12-26] MEDS: LEVOTHYROXINE SODIUM 25 MCG TABLET PO SCH (06:36)
[2016-12-26] MEDS: MULTIVITAMINS WITH MINERALS, THERAPEUTIC TABLET PO SCH (08:26)
[2016-12-26] MEDS: GABAPENTIN 300 MG CAPSULE PO SCH ×3 (08:26→16:38)
[2016-12-26] MEDS: NICOTINE 14 MG/24 HOUR PATCH TD SCH (09:00)
[2016-12-26] MEDS ORDERED: MAG HYDROX/AL HYDROX/SIMETH 30 ML SUSP UDCUP PO PRN (10:15)
[2016-12-26] MEDS ORDERED: MAG HYDROX/AL HYDROX/SIMETH ES 30 ML SUSPENSION UDCUP PO PRN (10:30)
[2016-12-26 16:52] VITALS: BP 102/76
[2016-12-27] MEDS: LEVOTHYROXINE SODIUM 25 MCG TABLET PO SCH (06:27)
[2016-12-27] MEDS: MULTIVITAMINS WITH MINERALS, THERAPEUTIC TABLET PO SCH (08:27)
[2016-12-27] MEDS: GABAPENTIN 300 MG CAPSULE PO SCH ×3 (08:27→17:07)
[2016-12-27] MEDS: NICOTINE 14 MG/24 HOUR PATCH TD SCH (08:28)
[2016-12-27 16:14] VITALS: BP 113/60
[2016-12-28] MEDS: LEVOTHYROXINE SODIUM 25 MCG TABLET PO SCH (06:38)
[2016-12-28 06:56] VITALS: BP 120/68
[2016-12-28] MEDS: NICOTINE 14 MG/24 HOUR PATCH TD SCH (09:00)
[2016-12-28] MEDS: MULTIVITAMINS WITH MINERALS, THERAPEUTIC TABLET PO SCH (09:00)
[2016-12-28] MEDS: GABAPENTIN 300 MG CAPSULE PO SCH ×3 (09:00→16:41)
[2016-12-28 16:16] VITALS: BP 129/94
[2016-12-29] MEDS: LEVOTHYROXINE SODIUM 25 MCG TABLET PO SCH (06:51)
[2016-12-29 06:53] VITALS: BP 127/81
[2016-12-29] MEDS: MULTIVITAMINS WITH MINERALS, THERAPEUTIC TABLET PO SCH (08:17)
[2016-12-29] MEDS: GABAPENTIN 300 MG CAPSULE PO SCH ×3 (08:17→17:27)
[2016-12-29] MEDS: NICOTINE 14 MG/24 HOUR PATCH TD SCH (08:17)
[2016-12-30 04:15] VITALS: BP 125/73
[2016-12-30] MEDS: LEVOTHYROXINE SODIUM 25 MCG TABLET PO SCH (06:32)
[2016-12-30] MEDS: GABAPENTIN 300 MG CAPSULE PO SCH ×3 (08:22→16:39)
[2016-12-30] MEDS: MULTIVITAMINS WITH MINERALS, THERAPEUTIC TABLET PO SCH (08:22)
[2016-12-30] MEDS: NICOTINE 14 MG/24 HOUR PATCH TD SCH (08:24)
[2016-12-31] MEDS: LEVOTHYROXINE SODIUM 25 MCG TABLET PO SCH (06:30)
[2016-12-31] MEDS: MULTIVITAMINS WITH MINERALS, THERAPEUTIC TABLET PO SCH (08:41)
[2016-12-31] MEDS: GABAPENTIN 300 MG CAPSULE PO SCH ×3 (08:41→16:38)
[2016-12-31] MEDS: NICOTINE 14 MG/24 HOUR PATCH TD SCH (08:42)
[2016-12-31 16:09] VITALS: BP 108/65
[2017-01-01] MEDS: LEVOTHYROXINE SODIUM 25 MCG TABLET PO SCH (06:36)
[2017-01-01] MEDS: MULTIVITAMINS WITH MINERALS, THERAPEUTIC TABLET PO SCH (08:58)
[2017-01-01] MEDS: NICOTINE 14 MG/24 HOUR PATCH TD SCH ×2 (08:59→13:55)
[2017-01-01] MEDS: LORazepam 2 MG TABLET PO PRN (08:59)
[2017-01-01] MEDS: GABAPENTIN 300 MG CAPSULE PO SCH ×3 (08:59→16:38)
[2017-01-02 00:40] VITALS: BP 114/68
[2017-01-02] MEDS: LEVOTHYROXINE SODIUM 25 MCG TABLET PO SCH (07:18)
[2017-01-02] MEDS: MULTIVITAMINS WITH MINERALS, THERAPEUTIC TABLET PO SCH (08:16)
[2017-01-02] MEDS: GABAPENTIN 300 MG CAPSULE PO SCH ×3 (08:16→17:26)
[2017-01-02] MEDS: NICOTINE 14 MG/24 HOUR PATCH TD SCH (08:23)
[2017-01-02] MEDS: LORazepam 2 MG TABLET PO PRN (12:27)
[2017-01-02 16:09] VITALS: BP 108/69
[2017-01-02] MEDS: HALOPERIDOL 5 MG TABLET PO PRN (16:31)
[2017-01-03] MEDS: LEVOTHYROXINE SODIUM 25 MCG TABLET PO SCH (06:37)
[2017-01-03] MEDS: GABAPENTIN 300 MG CAPSULE PO SCH ×3 (08:13→16:43)
[2017-01-03] MEDS: MULTIVITAMINS WITH MINERALS, THERAPEUTIC TABLET PO SCH (08:13)
[2017-01-03] MEDS: NICOTINE 14 MG/24 HOUR PATCH TD SCH (08:14)
[2017-01-04] MEDS: LEVOTHYROXINE SODIUM 25 MCG TABLET PO SCH (05:46)
[2017-01-04] MEDS: MULTIVITAMINS WITH MINERALS, THERAPEUTIC TABLET PO SCH (08:21)
[2017-01-04] MEDS: GABAPENTIN 300 MG CAPSULE PO SCH ×3 (08:22→16:33)
[2017-01-04] MEDS: NICOTINE 14 MG/24 HOUR PATCH TD SCH (09:00)
[2017-01-04 16:10] VITALS: BP 106/76
[2017-01-05] MEDS: LEVOTHYROXINE SODIUM 25 MCG TABLET PO SCH (06:10)
[2017-01-05] MEDS: LORazepam 2 MG TABLET PO PRN (06:14)
[2017-01-05 06:47] VITALS: BP 110/82
[2017-01-05] MEDS: MULTIVITAMINS WITH MINERALS, THERAPEUTIC TABLET PO SCH (08:36)
[2017-01-05] MEDS: GABAPENTIN 300 MG CAPSULE PO SCH ×3 (08:36→16:43)
[2017-01-05] MEDS: NICOTINE 14 MG/24 HOUR PATCH TD SCH (08:42)
[2017-01-06] MEDS: LEVOTHYROXINE SODIUM 25 MCG TABLET PO SCH (06:27)
[2017-01-06] MEDS: GABAPENTIN 300 MG CAPSULE PO SCH ×3 (08:21→16:36)
[2017-01-06] MEDS: MULTIVITAMINS WITH MINERALS, THERAPEUTIC TABLET PO SCH (08:21)
[2017-01-06] MEDS: NICOTINE 14 MG/24 HOUR PATCH TD SCH (09:00)
[2017-01-07] MEDS: LEVOTHYROXINE SODIUM 25 MCG TABLET PO SCH (05:41)
[2017-01-07 08:30] VITALS: BP 110/60
[2017-01-07] MEDS: GABAPENTIN 300 MG CAPSULE PO SCH ×3 (08:30→16:08)
[2017-01-07] MEDS: MULTIVITAMINS WITH MINERALS, THERAPEUTIC TABLET PO SCH (08:30)
[2017-01-07] MEDS: RisperiDONE MICROSPHERES 50 MG/2 ML SYRINGE IM SCH (08:33)
[2017-01-07] MEDS: NICOTINE 14 MG/24 HOUR PATCH TD SCH (09:00)
[2017-01-07 16:09] VITALS: BP 124/63
[2017-01-08] MEDS: LEVOTHYROXINE SODIUM 25 MCG TABLET PO SCH (05:59)
[2017-01-08] MEDS: NICOTINE 14 MG/24 HOUR PATCH TD SCH (09:00)
[2017-01-08] MEDS: GABAPENTIN 300 MG CAPSULE PO SCH ×3 (09:24→16:37)
[2017-01-08] MEDS: MULTIVITAMINS WITH MINERALS, THERAPEUTIC TABLET PO SCH (09:24)
[2017-01-09] MEDS: LEVOTHYROXINE SODIUM 25 MCG TABLET PO SCH (06:10)
[2017-01-09] MEDS: GABAPENTIN 300 MG CAPSULE PO SCH ×3 (08:08→16:32)
[2017-01-09] MEDS: MULTIVITAMINS WITH MINERALS, THERAPEUTIC TABLET PO SCH (08:08)
[2017-01-09] MEDS: NICOTINE 14 MG/24 HOUR PATCH TD SCH (08:10)
[2017-01-09 16:11] VITALS: BP 104/70
[2017-01-10] MEDS: LEVOTHYROXINE SODIUM 25 MCG TABLET PO SCH (06:16)
[2017-01-10 08:06] VITALS: BP 100/74
[2017-01-10] MEDS: NICOTINE 14 MG/24 HOUR PATCH TD SCH (08:26)
[2017-01-10] MEDS: MULTIVITAMINS WITH MINERALS, THERAPEUTIC TABLET PO SCH (08:26)
[2017-01-10] MEDS: GABAPENTIN 300 MG CAPSULE PO SCH ×3 (08:26→16:41)
[2017-01-11] MEDS: LEVOTHYROXINE SODIUM 25 MCG TABLET PO SCH (06:09)
[2017-01-11] MEDS: GABAPENTIN 300 MG CAPSULE PO SCH ×3 (08:28→16:35)
[2017-01-11] MEDS: MULTIVITAMINS WITH MINERALS, THERAPEUTIC TABLET PO SCH (08:28)
[2017-01-11] MEDS: NICOTINE 14 MG/24 HOUR PATCH TD SCH (09:00)
[2017-01-12] MEDS: LEVOTHYROXINE SODIUM 25 MCG TABLET PO SCH (06:27)
[2017-01-12] MEDS: MULTIVITAMINS WITH MINERALS, THERAPEUTIC TABLET PO SCH (08:17)
[2017-01-12] MEDS: GABAPENTIN 300 MG CAPSULE PO SCH ×3 (08:18→16:53)
[2017-01-12] MEDS: NICOTINE 14 MG/24 HOUR PATCH TD SCH (09:00)
[2017-01-12] MEDS: LORazepam 2 MG TABLET PO PRN (09:13)
[2017-01-13] MEDS: LEVOTHYROXINE SODIUM 25 MCG TABLET PO SCH (05:52)
[2017-01-13] MEDS: MULTIVITAMINS WITH MINERALS, THERAPEUTIC TABLET PO SCH (08:11)
[2017-01-13] MEDS: GABAPENTIN 300 MG CAPSULE PO SCH ×3 (08:11→16:37)
[2017-01-13] MEDS: NICOTINE 14 MG/24 HOUR PATCH TD SCH (09:00)
[2017-01-13 16:17] VITALS: BP 109/98
[2017-01-14] MEDS: LEVOTHYROXINE SODIUM 25 MCG TABLET PO SCH (06:13)
[2017-01-14] MEDS: GABAPENTIN 300 MG CAPSULE PO SCH ×3 (08:29→16:36)
[2017-01-14] MEDS: MULTIVITAMINS WITH MINERALS, THERAPEUTIC TABLET PO SCH (08:29)
[2017-01-14 16:23] VITALS: BP 100/68
[2017-01-15 04:30] VITALS: BP 102/68
[2017-01-15] MEDS: LEVOTHYROXINE SODIUM 25 MCG TABLET PO SCH (05:31)
[2017-01-15] MEDS: GABAPENTIN 300 MG CAPSULE PO SCH ×3 (08:20→16:41)
[2017-01-15] MEDS: MULTIVITAMINS WITH MINERALS, THERAPEUTIC TABLET PO SCH (08:20)
[2017-01-15 16:06] VITALS: BP 103/70
[2017-01-16 06:06] VITALS: BP 102/62
[2017-01-16] MEDS: LEVOTHYROXINE SODIUM 25 MCG TABLET PO SCH (06:34)
[2017-01-16] MEDS: GABAPENTIN 300 MG CAPSULE PO SCH ×3 (08:36→16:42)
[2017-01-16] MEDS: MULTIVITAMINS WITH MINERALS, THERAPEUTIC TABLET PO SCH (08:36)
[2017-01-16 16:08] VITALS: BP 118/64
[2017-01-17] MEDS: LEVOTHYROXINE SODIUM 25 MCG TABLET PO SCH (06:28)
[2017-01-17] MEDS: MULTIVITAMINS WITH MINERALS, THERAPEUTIC TABLET PO SCH (08:23)
[2017-01-17] MEDS: GABAPENTIN 300 MG CAPSULE PO SCH ×3 (08:23→16:39)
[2017-01-17 08:29] VITALS: BP 109/65
[2017-01-17 16:11] VITALS: BP 104/63
[2017-01-18 05:48] VITALS: BP 102/61
[2017-01-18] MEDS: LEVOTHYROXINE SODIUM 25 MCG TABLET PO SCH (06:08)
[2017-01-18 08:26] VITALS: BP 101/66
[2017-01-18] MEDS: GABAPENTIN 300 MG CAPSULE PO SCH ×3 (08:32→16:56)
[2017-01-18] MEDS: MULTIVITAMINS WITH MINERALS, THERAPEUTIC TABLET PO SCH (08:32)
[2017-01-18 16:12] VITALS: BP 106/64
[2017-01-19] MEDS: LEVOTHYROXINE SODIUM 25 MCG TABLET PO SCH (06:22)
[2017-01-19 07:09] VITALS: BP 108/75
[2017-01-19] MEDS: GABAPENTIN 300 MG CAPSULE PO SCH ×3 (08:30→16:35)
[2017-01-19] MEDS: MULTIVITAMINS WITH MINERALS, THERAPEUTIC TABLET PO SCH (08:30)
[2017-01-20] MEDS: LEVOTHYROXINE SODIUM 25 MCG TABLET PO SCH (06:11)
[2017-01-20] MEDS: MULTIVITAMINS WITH MINERALS, THERAPEUTIC TABLET PO SCH (08:32)
[2017-01-20] MEDS: GABAPENTIN 300 MG CAPSULE PO SCH ×3 (08:32→16:19)
[2017-01-21] MEDS: LEVOTHYROXINE SODIUM 25 MCG TABLET PO SCH (06:41)
[2017-01-21] MEDS: MULTIVITAMINS WITH MINERALS, THERAPEUTIC TABLET PO SCH (08:54)
[2017-01-21] MEDS: GABAPENTIN 300 MG CAPSULE PO SCH ×3 (08:54→16:27)
[2017-01-21] MEDS: RisperiDONE MICROSPHERES 50 MG/2 ML SYRINGE IM SCH (09:53)
[2017-01-21 16:00] VITALS: BP 113/65
[2017-01-22] MEDS: LEVOTHYROXINE SODIUM 25 MCG TABLET PO SCH (06:11)
[2017-01-22] MEDS: MULTIVITAMINS WITH MINERALS, THERAPEUTIC TABLET PO SCH (08:39)
[2017-01-22] MEDS: GABAPENTIN 300 MG CAPSULE PO SCH ×3 (08:40→16:25)
[2017-01-22 16:11] VITALS: BP 130/72
[2017-01-22] MEDS: IBUPROFEN 400 MG TABLET PO PRN (16:37)
[2017-01-22] MEDS ORDERED: LORATADINE 10 MG TABLET PO ONE (22:00)
[2017-01-23] MEDS: LEVOTHYROXINE SODIUM 25 MCG TABLET PO SCH (05:37)
[2017-01-23] MEDS: MULTIVITAMINS WITH MINERALS, THERAPEUTIC TABLET PO SCH (08:17)
[2017-01-23] MEDS: GABAPENTIN 300 MG CAPSULE PO SCH ×3 (08:17→16:30)
[2017-01-23] MEDS: LORATADINE 10 MG TABLET PO SCH (08:17)
[2017-01-23 16:04] VITALS: BP 115/68
[2017-01-24] MEDS: LEVOTHYROXINE SODIUM 25 MCG TABLET PO SCH (06:24)
[2017-01-24] MEDS: LORATADINE 10 MG TABLET PO SCH (08:22)
[2017-01-24 08:23] VITALS: BP 105/71
[2017-01-24] MEDS: GABAPENTIN 300 MG CAPSULE PO SCH ×3 (08:23→16:40)
[2017-01-24] MEDS: MULTIVITAMINS WITH MINERALS, THERAPEUTIC TABLET PO SCH (08:23)
[2017-01-24 16:03] VITALS: BP 106/64
[2017-01-25 03:40] VITALS: BP 103/67
[2017-01-25] MEDS: LEVOTHYROXINE SODIUM 25 MCG TABLET PO SCH (06:30)
[2017-01-25] MEDS: LORATADINE 10 MG TABLET PO SCH (08:38)
[2017-01-25] MEDS: MULTIVITAMINS WITH MINERALS, THERAPEUTIC TABLET PO SCH (08:38)
[2017-01-25] MEDS: GABAPENTIN 300 MG CAPSULE PO SCH ×3 (08:38→16:38)
[2017-01-25 16:11] VITALS: BP 113/74
[2017-01-26 04:57] VITALS: BP 100/69
[2017-01-26] MEDS: LEVOTHYROXINE SODIUM 25 MCG TABLET PO SCH (06:40)
[2017-01-26] MEDS: GABAPENTIN 300 MG CAPSULE PO SCH ×3 (08:09→16:51)
[2017-01-26] MEDS: MULTIVITAMINS WITH MINERALS, THERAPEUTIC TABLET PO SCH (08:09)
[2017-01-26] MEDS: LORATADINE 10 MG TABLET PO SCH (08:09)
[2017-01-26 16:12] VITALS: BP 115/70
[2017-01-27 06:04] VITALS: BP 102/63
[2017-01-27] MEDS: LEVOTHYROXINE SODIUM 25 MCG TABLET PO SCH (06:26)
[2017-01-27] MEDS: LORATADINE 10 MG TABLET PO SCH (08:13)
[2017-01-27] MEDS: GABAPENTIN 300 MG CAPSULE PO SCH ×3 (08:13→16:35)
[2017-01-27] MEDS: MULTIVITAMINS WITH MINERALS, THERAPEUTIC TABLET PO SCH (08:13)
[2017-01-27 16:05] VITALS: BP 105/64
[2017-01-28 02:46] VITALS: BP 105/72
[2017-01-28] MEDS: LEVOTHYROXINE SODIUM 25 MCG TABLET PO SCH (06:18)
[2017-01-28] MEDS: GABAPENTIN 300 MG CAPSULE PO SCH ×3 (08:19→16:34)
[2017-01-28] MEDS: LORATADINE 10 MG TABLET PO SCH (08:19)
[2017-01-28] MEDS: MULTIVITAMINS WITH MINERALS, THERAPEUTIC TABLET PO SCH (08:19)
[2017-01-28 08:39] VITALS: BP 123/70
[2017-01-28 16:13] VITALS: BP 111/75
[2017-01-29] MEDS: LEVOTHYROXINE SODIUM 25 MCG TABLET PO SCH (05:32)
[2017-01-29 08:08] VITALS: BP 107/62
[2017-01-29] MEDS: GABAPENTIN 300 MG CAPSULE PO SCH ×3 (08:34→16:53)
[2017-01-29] MEDS: MULTIVITAMINS WITH MINERALS, THERAPEUTIC TABLET PO SCH (08:34)
[2017-01-29] MEDS: LORATADINE 10 MG TABLET PO SCH (08:34)
[2017-01-29 16:07] VITALS: BP 113/71
[2017-01-30 05:07] VITALS: BP 115/69
[2017-01-30] MEDS: LEVOTHYROXINE SODIUM 25 MCG TABLET PO SCH (06:30)
[2017-01-30 08:05] VITALS: BP 107/69
[2017-01-30] MEDS: LORATADINE 10 MG TABLET PO SCH (08:48)
[2017-01-30] MEDS: MULTIVITAMINS WITH MINERALS, THERAPEUTIC TABLET PO SCH (08:48)
[2017-01-30] MEDS: GABAPENTIN 300 MG CAPSULE PO SCH ×3 (08:48→16:35)
[2017-01-30 16:06] VITALS: BP 117/75
[2017-01-31] MEDS: LEVOTHYROXINE SODIUM 25 MCG TABLET PO SCH (06:30)
[2017-01-31] MEDS: GABAPENTIN 300 MG CAPSULE PO SCH ×3 (08:11→16:36)
[2017-01-31] MEDS: LORATADINE 10 MG TABLET PO SCH (08:11)
[2017-01-31] MEDS: MULTIVITAMINS WITH MINERALS, THERAPEUTIC TABLET PO SCH (08:11)
[2017-01-31 16:05] VITALS: BP 103/64
[2017-02-01 06:11] VITALS: BP 100/60
[2017-02-01] MEDS: LEVOTHYROXINE SODIUM 25 MCG TABLET PO SCH ×2 (06:24→06:30)
[2017-02-01] MEDS: LORATADINE 10 MG TABLET PO SCH (08:21)
[2017-02-01] MEDS: GABAPENTIN 300 MG CAPSULE PO SCH ×3 (08:21→16:14)
[2017-02-01] MEDS: MULTIVITAMINS WITH MINERALS, THERAPEUTIC TABLET PO SCH (08:21)
[2017-02-01 16:02] VITALS: BP 120/71
[2017-02-02] MEDS: LEVOTHYROXINE SODIUM 25 MCG TABLET PO SCH (06:08)
[2017-02-02 06:17] VITALS: BP 105/69
[2017-02-02] MEDS: MULTIVITAMINS WITH MINERALS, THERAPEUTIC TABLET PO SCH (08:06)
[2017-02-02] MEDS: GABAPENTIN 300 MG CAPSULE PO SCH ×3 (08:06→16:44)
[2017-02-02] MEDS: LORATADINE 10 MG TABLET PO SCH (08:06)
[2017-02-02 08:14] VITALS: BP 100/72
[2017-02-03] MEDS: LEVOTHYROXINE SODIUM 25 MCG TABLET PO SCH (06:24)
[2017-02-03] MEDS: LORATADINE 10 MG TABLET PO SCH (08:02)
[2017-02-03] MEDS: MULTIVITAMINS WITH MINERALS, THERAPEUTIC TABLET PO SCH (08:02)
[2017-02-03] MEDS: GABAPENTIN 300 MG CAPSULE PO SCH ×3 (08:02→16:08)
[2017-02-03 16:45] VITALS: BP 104/61
[2017-02-04] MEDS: LEVOTHYROXINE SODIUM 25 MCG TABLET PO SCH (05:59)
[2017-02-04] MEDS: GABAPENTIN 300 MG CAPSULE PO SCH ×3 (08:19→16:38)
[2017-02-04] MEDS: MULTIVITAMINS WITH MINERALS, THERAPEUTIC TABLET PO SCH (08:19)
[2017-02-04 08:20] VITALS: BP 117/78
[2017-02-04] MEDS: LORATADINE 10 MG TABLET PO SCH (08:20)
[2017-02-04] MEDS: RisperiDONE MICROSPHERES 50 MG/2 ML SYRINGE IM SCH (08:26)
[2017-02-04 16:03] VITALS: BP 107/70
[2017-02-05 05:48] VITALS: BP 110/83
[2017-02-05] MEDS: LEVOTHYROXINE SODIUM 25 MCG TABLET PO SCH (06:44)
[2017-02-05 08:08] VITALS: BP 116/81
[2017-02-05] MEDS: GABAPENTIN 300 MG CAPSULE PO SCH ×3 (08:09→16:11)
[2017-02-05] MEDS: LORATADINE 10 MG TABLET PO SCH (08:09)
[2017-02-05] MEDS: MULTIVITAMINS WITH MINERALS, THERAPEUTIC TABLET PO SCH (08:10)
[2017-02-05 16:00] VITALS: BP 121/69
[2017-02-06] MEDS: LEVOTHYROXINE SODIUM 25 MCG TABLET PO SCH (06:41)
[2017-02-06] MEDS: LORATADINE 10 MG TABLET PO SCH (08:01)
[2017-02-06] MEDS: MULTIVITAMINS WITH MINERALS, THERAPEUTIC TABLET PO SCH (08:01)
[2017-02-06] MEDS: GABAPENTIN 300 MG CAPSULE PO SCH ×3 (08:01→16:38)
[2017-02-06 08:15] VITALS: BP 103/68
[2017-02-06 17:00] VITALS: BP 111/72
[2017-02-07] MEDS: LEVOTHYROXINE SODIUM 25 MCG TABLET PO SCH (06:36)
[2017-02-07] MEDS: LORATADINE 10 MG TABLET PO SCH (08:22)
[2017-02-07] MEDS: MULTIVITAMINS WITH MINERALS, THERAPEUTIC TABLET PO SCH (08:22)
[2017-02-07] MEDS: GABAPENTIN 300 MG CAPSULE PO SCH ×3 (08:23→16:31)
[2017-02-07 16:04] VITALS: BP 103/60
[2017-02-08] MEDS: LEVOTHYROXINE SODIUM 25 MCG TABLET PO SCH (06:40)
[2017-02-08] MEDS: MULTIVITAMINS WITH MINERALS, THERAPEUTIC TABLET PO SCH (08:12)
[2017-02-08] MEDS: LORATADINE 10 MG TABLET PO SCH (08:12)
[2017-02-08] MEDS: GABAPENTIN 300 MG CAPSULE PO SCH ×3 (08:12→16:34)
[2017-02-09 01:50] VITALS: BP 104/75
[2017-02-09] MEDS: LEVOTHYROXINE SODIUM 25 MCG TABLET PO SCH (06:12)
[2017-02-09] MEDS: MULTIVITAMINS WITH MINERALS, THERAPEUTIC TABLET PO SCH (08:14)
[2017-02-09] MEDS: LORATADINE 10 MG TABLET PO SCH (08:14)
[2017-02-09] MEDS: GABAPENTIN 300 MG CAPSULE PO SCH ×3 (08:14→17:13)
[2017-02-09] MEDS: BACITRACIN 28.4 GM OINTMENT TP SCH ×2 (09:24→17:14)
[2017-02-09] MEDS: CEPHALEXIN MONOHYDRATE 500 MG CAPSULE PO SCH ×4 (09:31→21:03)
[2017-02-09] MEDS: SULFAMETHOX/TRIMETH DS 800-160 MG/TABLET PO SCH ×2 (09:31→17:13)
[2017-02-10 03:33] VITALS: BP 111/83
[2017-02-10] MEDS: LEVOTHYROXINE SODIUM 25 MCG TABLET PO SCH (06:20)
[2017-02-10] MEDS: CEPHALEXIN MONOHYDRATE 500 MG CAPSULE PO SCH ×4 (08:14→20:46)
[2017-02-10] MEDS: MULTIVITAMINS WITH MINERALS, THERAPEUTIC TABLET PO SCH (08:14)
[2017-02-10] MEDS: GABAPENTIN 300 MG CAPSULE PO SCH ×3 (08:14→17:03)
[2017-02-10] MEDS: SULFAMETHOX/TRIMETH DS 800-160 MG/TABLET PO SCH ×2 (08:14→17:08)
[2017-02-10] MEDS: LORATADINE 10 MG TABLET PO SCH (08:14)
[2017-02-10] MEDS: BACITRACIN 28.4 GM OINTMENT TP SCH ×3 (08:16→17:18)
[2017-02-11] MEDS: LEVOTHYROXINE SODIUM 25 MCG TABLET PO SCH (06:49)
[2017-02-11] MEDS: SULFAMETHOX/TRIMETH DS 800-160 MG/TABLET PO SCH ×2 (08:39→16:33)
[2017-02-11] MEDS: GABAPENTIN 300 MG CAPSULE PO SCH ×3 (08:39→16:33)
[2017-02-11] MEDS: CEPHALEXIN MONOHYDRATE 500 MG CAPSULE PO SCH ×4 (08:39→20:18)
[2017-02-11] MEDS: LORATADINE 10 MG TABLET PO SCH (08:39)
[2017-02-11] MEDS: MULTIVITAMINS WITH MINERALS, THERAPEUTIC TABLET PO SCH (08:39)
[2017-02-11] MEDS: BACITRACIN 28.4 GM OINTMENT TP SCH (16:33)
[2017-02-12] MEDS: LEVOTHYROXINE SODIUM 25 MCG TABLET PO SCH (06:02)
[2017-02-12] MEDS: GABAPENTIN 300 MG CAPSULE PO SCH ×3 (08:17→16:45)
[2017-02-12] MEDS: SULFAMETHOX/TRIMETH DS 800-160 MG/TABLET PO SCH ×2 (08:23→16:45)
[2017-02-12] MEDS: CEPHALEXIN MONOHYDRATE 500 MG CAPSULE PO SCH ×4 (08:23→20:32)
[2017-02-12] MEDS: MULTIVITAMINS WITH MINERALS, THERAPEUTIC TABLET PO SCH (08:23)
[2017-02-12] MEDS: LORATADINE 10 MG TABLET PO SCH (08:23)
[2017-02-12] MEDS: BACITRACIN 28.4 GM OINTMENT TP SCH ×2 (08:24→17:00)
[2017-02-13] MEDS: LEVOTHYROXINE SODIUM 25 MCG TABLET PO SCH (07:13)
[2017-02-13] MEDS: SULFAMETHOX/TRIMETH DS 800-160 MG/TABLET PO SCH ×2 (09:00→16:40)
[2017-02-13] MEDS: LORATADINE 10 MG TABLET PO SCH (09:00)
[2017-02-13] MEDS: GABAPENTIN 300 MG CAPSULE PO SCH ×3 (09:00→16:40)
[2017-02-13] MEDS: MULTIVITAMINS WITH MINERALS, THERAPEUTIC TABLET PO SCH (09:00)
[2017-02-13] MEDS: CEPHALEXIN MONOHYDRATE 500 MG CAPSULE PO SCH ×4 (09:00→20:54)
[2017-02-13] MEDS: BACITRACIN 28.4 GM OINTMENT TP SCH ×2 (09:01→16:49)
[2017-02-13 16:04] VITALS: BP 115/79
[2017-02-14 03:05] VITALS: BP 110/66
[2017-02-14] MEDS: LEVOTHYROXINE SODIUM 25 MCG TABLET PO SCH (06:04)
[2017-02-14] MEDS: GABAPENTIN 300 MG CAPSULE PO SCH ×3 (08:27→16:42)
[2017-02-14] MEDS: LORATADINE 10 MG TABLET PO SCH (08:27)
[2017-02-14] MEDS: SULFAMETHOX/TRIMETH DS 800-160 MG/TABLET PO SCH ×2 (08:27→16:41)
[2017-02-14] MEDS: MULTIVITAMINS WITH MINERALS, THERAPEUTIC TABLET PO SCH (08:27)
[2017-02-14] MEDS: BACITRACIN 28.4 GM OINTMENT TP SCH ×2 (08:27→17:00)
[2017-02-14] MEDS: CEPHALEXIN MONOHYDRATE 500 MG CAPSULE PO SCH ×4 (08:27→20:42)
[2017-02-14 16:09] VITALS: BP 118/82
[2017-02-15] MEDS: LEVOTHYROXINE SODIUM 25 MCG TABLET PO SCH (06:18)
[2017-02-15] MEDS: GABAPENTIN 300 MG CAPSULE PO SCH ×3 (08:59→16:43)
[2017-02-15] MEDS: LORATADINE 10 MG TABLET PO SCH (08:59)
[2017-02-15] MEDS: MULTIVITAMINS WITH MINERALS, THERAPEUTIC TABLET PO SCH (08:59)
[2017-02-15] MEDS: SULFAMETHOX/TRIMETH DS 800-160 MG/TABLET PO SCH ×2 (08:59→16:43)
[2017-02-15] MEDS: CEPHALEXIN MONOHYDRATE 500 MG CAPSULE PO SCH ×4 (08:59→20:31)
[2017-02-15] MEDS ORDERED: BACITRACIN 28.4 GM OINTMENT TP PRN (09:00)
[2017-02-16 05:28] VITALS: BP 99/70
[2017-02-16] MEDS: LEVOTHYROXINE SODIUM 25 MCG TABLET PO SCH (06:43)
[2017-02-16] MEDS: MULTIVITAMINS WITH MINERALS, THERAPEUTIC TABLET PO SCH (08:25)
[2017-02-16] MEDS: LORATADINE 10 MG TABLET PO SCH (08:25)
[2017-02-16] MEDS: CEPHALEXIN MONOHYDRATE 500 MG CAPSULE PO SCH ×4 (08:25→20:34)
[2017-02-16] MEDS: SULFAMETHOX/TRIMETH DS 800-160 MG/TABLET PO SCH ×2 (08:25→16:34)
[2017-02-16] MEDS: GABAPENTIN 300 MG CAPSULE PO SCH ×3 (08:25→16:34)
[2017-02-17 01:57] VITALS: BP 102/64
[2017-02-17] MEDS: LEVOTHYROXINE SODIUM 25 MCG TABLET PO SCH (06:20)
[2017-02-17] MEDS: SULFAMETHOX/TRIMETH DS 800-160 MG/TABLET PO SCH ×2 (08:44→17:00)
[2017-02-17] MEDS: MULTIVITAMINS WITH MINERALS, THERAPEUTIC TABLET PO SCH (08:44)
[2017-02-17] MEDS: GABAPENTIN 300 MG CAPSULE PO SCH ×3 (08:44→17:00)
[2017-02-17] MEDS: LORATADINE 10 MG TABLET PO SCH (08:44)
[2017-02-17] MEDS: CEPHALEXIN MONOHYDRATE 500 MG CAPSULE PO SCH ×4 (08:44→20:56)
[2017-02-18 03:07] VITALS: BP 104/71
[2017-02-18] MEDS: LEVOTHYROXINE SODIUM 25 MCG TABLET PO SCH (06:28)
[2017-02-18 08:03] VITALS: BP 108/73
[2017-02-18] MEDS: CEPHALEXIN MONOHYDRATE 500 MG CAPSULE PO SCH ×4 (08:30→20:48)
[2017-02-18] MEDS: SULFAMETHOX/TRIMETH DS 800-160 MG/TABLET PO SCH ×2 (08:30→17:10)
[2017-02-18] MEDS: MULTIVITAMINS WITH MINERALS, THERAPEUTIC TABLET PO SCH (08:31)
[2017-02-18] MEDS: LORATADINE 10 MG TABLET PO SCH (08:31)
[2017-02-18] MEDS: GABAPENTIN 300 MG CAPSULE PO SCH ×3 (08:31→17:10)
[2017-02-18] MEDS: RisperiDONE MICROSPHERES 50 MG/2 ML SYRINGE IM SCH (08:32)
[2017-02-19 01:51] VITALS: BP 112/81
[2017-02-19] MEDS: LEVOTHYROXINE SODIUM 25 MCG TABLET PO SCH (06:34)
[2017-02-19] MEDS: CEPHALEXIN MONOHYDRATE 500 MG CAPSULE PO SCH (08:19)
[2017-02-19] MEDS: LORATADINE 10 MG TABLET PO SCH (08:19)
[2017-02-19] MEDS: GABAPENTIN 300 MG CAPSULE PO SCH ×3 (08:19→16:31)
[2017-02-19] MEDS: MULTIVITAMINS WITH MINERALS, THERAPEUTIC TABLET PO SCH (08:19)
[2017-02-19] MEDS: SULFAMETHOX/TRIMETH DS 800-160 MG/TABLET PO SCH (08:19)
[2017-02-20] MEDS: LEVOTHYROXINE SODIUM 25 MCG TABLET PO SCH (06:19)
[2017-02-20] MEDS: MULTIVITAMINS WITH MINERALS, THERAPEUTIC TABLET PO SCH (08:52)
[2017-02-20] MEDS: GABAPENTIN 300 MG CAPSULE PO SCH ×3 (08:52→16:56)
[2017-02-20] MEDS: LORATADINE 10 MG TABLET PO SCH (08:52)
[2017-02-20 16:03] VITALS: BP 103/64
[2017-02-21] MEDS: LEVOTHYROXINE SODIUM 25 MCG TABLET PO SCH (06:22)
[2017-02-21 06:38] VITALS: BP 121/75
[2017-02-21] MEDS: LORATADINE 10 MG TABLET PO SCH (08:27)
[2017-02-21] MEDS: GABAPENTIN 300 MG CAPSULE PO SCH ×3 (08:27→16:34)
[2017-02-21] MEDS: MULTIVITAMINS WITH MINERALS, THERAPEUTIC TABLET PO SCH (08:27)
[2017-02-22 01:58] VITALS: BP 105/69
[2017-02-22] MEDS: LEVOTHYROXINE SODIUM 25 MCG TABLET PO SCH (07:04)
[2017-02-22] MEDS: LORATADINE 10 MG TABLET PO SCH (08:11)
[2017-02-22] MEDS: MULTIVITAMINS WITH MINERALS, THERAPEUTIC TABLET PO SCH (08:11)
[2017-02-22] MEDS: GABAPENTIN 300 MG CAPSULE PO SCH ×3 (08:11→16:35)
[2017-02-23 06:00] VITALS: BP 102/77
[2017-02-23] MEDS: LEVOTHYROXINE SODIUM 25 MCG TABLET PO SCH (06:53)
[2017-02-23] MEDS: LORATADINE 10 MG TABLET PO SCH (08:14)
[2017-02-23] MEDS: GABAPENTIN 300 MG CAPSULE PO SCH ×3 (08:14→16:49)
[2017-02-23] MEDS: MULTIVITAMINS WITH MINERALS, THERAPEUTIC TABLET PO SCH (08:14)
[2017-02-23 16:09] VITALS: BP 103/63
[2017-02-24 03:38] VITALS: BP 102/69
[2017-02-24] MEDS: LEVOTHYROXINE SODIUM 25 MCG TABLET PO SCH (06:44)
[2017-02-24] MEDS: MULTIVITAMINS WITH MINERALS, THERAPEUTIC TABLET PO SCH (08:02)
[2017-02-24] MEDS: GABAPENTIN 300 MG CAPSULE PO SCH ×3 (08:02→16:35)
[2017-02-24] MEDS: LORATADINE 10 MG TABLET PO SCH (08:02)
[2017-02-25] MEDS: LEVOTHYROXINE SODIUM 25 MCG TABLET PO SCH (06:09)
[2017-02-25 08:20] VITALS: BP 113/68
[2017-02-25] MEDS: LORATADINE 10 MG TABLET PO SCH (08:24)
[2017-02-25] MEDS: MULTIVITAMINS WITH MINERALS, THERAPEUTIC TABLET PO SCH (08:24)
[2017-02-25] MEDS: GABAPENTIN 300 MG CAPSULE PO SCH ×3 (08:24→16:39)
[2017-02-25] MEDS: IBUPROFEN 400 MG TABLET PO PRN (13:24)
[2017-02-26] MEDS: LEVOTHYROXINE SODIUM 25 MCG TABLET PO SCH (06:27)
[2017-02-26] MEDS: MULTIVITAMINS WITH MINERALS, THERAPEUTIC TABLET PO SCH (08:40)
[2017-02-26] MEDS: LORATADINE 10 MG TABLET PO SCH (08:40)
[2017-02-26] MEDS: GABAPENTIN 300 MG CAPSULE PO SCH ×3 (08:41→16:57)
[2017-02-26 16:03] VITALS: BP 111/63
[2017-02-27 03:51] VITALS: BP 110/69
[2017-02-27] MEDS: LEVOTHYROXINE SODIUM 25 MCG TABLET PO SCH (06:31)
[2017-02-27 08:11] VITALS: BP 104/71
[2017-02-27] MEDS: MULTIVITAMINS WITH MINERALS, THERAPEUTIC TABLET PO SCH (08:12)
[2017-02-27] MEDS: GABAPENTIN 300 MG CAPSULE PO SCH ×3 (08:12→16:40)
[2017-02-27] MEDS: LORATADINE 10 MG TABLET PO SCH (08:13)
[2017-02-27 16:05] VITALS: BP 100/65
[2017-02-27] MEDS: IBUPROFEN 400 MG TABLET PO PRN (16:05)
[2017-02-28] MEDS: LEVOTHYROXINE SODIUM 25 MCG TABLET PO SCH (06:06)
[2017-02-28] MEDS: LORATADINE 10 MG TABLET PO SCH (08:10)
[2017-02-28] MEDS: MULTIVITAMINS WITH MINERALS, THERAPEUTIC TABLET PO SCH (08:10)
[2017-02-28] MEDS: GABAPENTIN 300 MG CAPSULE PO SCH ×3 (08:10→16:39)
[2017-02-28 09:40] VITALS: BP 112/78
[2017-03-01] MEDS: LEVOTHYROXINE SODIUM 25 MCG TABLET PO SCH (06:03)
[2017-03-01] MEDS: MULTIVITAMINS WITH MINERALS, THERAPEUTIC TABLET PO SCH (08:04)
[2017-03-01] MEDS: LORATADINE 10 MG TABLET PO SCH (08:05)
[2017-03-01] MEDS: GABAPENTIN 300 MG CAPSULE PO SCH ×3 (08:05→16:37)
[2017-03-01] MEDS ORDERED: DiphenhydrAMINE HCL 50 MG/ML VIAL IM ONE (11:45)
[2017-03-01] MEDS ORDERED: LORazepam 2 MG/ML VIAL IM ONE (11:45)
[2017-03-01] MEDS ORDERED: HALOPERIDOL LACTATE 5 MG/ML VIAL IM ONE (11:45)
[2017-03-02] MEDS: LEVOTHYROXINE SODIUM 25 MCG TABLET PO SCH (06:35)
[2017-03-02] MEDS: GABAPENTIN 300 MG CAPSULE PO SCH ×3 (08:08→16:13)
[2017-03-02] MEDS: LORATADINE 10 MG TABLET PO SCH (08:09)
[2017-03-02] MEDS: MULTIVITAMINS WITH MINERALS, THERAPEUTIC TABLET PO SCH (08:09)
[2017-03-03] MEDS: LEVOTHYROXINE SODIUM 25 MCG TABLET PO SCH (06:28)
[2017-03-03] MEDS: HALOPERIDOL 5 MG TABLET PO PRN (08:03)
[2017-03-03] MEDS: GABAPENTIN 300 MG CAPSULE PO SCH ×3 (08:03→16:33)
[2017-03-03] MEDS: LORazepam 2 MG TABLET PO PRN (08:03)
[2017-03-03] MEDS: MULTIVITAMINS WITH MINERALS, THERAPEUTIC TABLET PO SCH (08:03)
[2017-03-03] MEDS: LORATADINE 10 MG TABLET PO SCH (08:17)
[2017-03-03 16:04] VITALS: BP 104/67
[2017-03-04] MEDS: LEVOTHYROXINE SODIUM 25 MCG TABLET PO SCH (06:05)
[2017-03-04] MEDS: MULTIVITAMINS WITH MINERALS, THERAPEUTIC TABLET PO SCH (08:17)
[2017-03-04] MEDS: GABAPENTIN 300 MG CAPSULE PO SCH ×3 (08:17→16:23)
[2017-03-04] MEDS: LORATADINE 10 MG TABLET PO SCH (08:19)
[2017-03-04] MEDS: RisperiDONE MICROSPHERES 50 MG/2 ML SYRINGE IM SCH (09:20)
[2017-03-05 00:02] VITALS: BP 125/83
[2017-03-05] MEDS: LEVOTHYROXINE SODIUM 25 MCG TABLET PO SCH (06:50)
[2017-03-05] MEDS: MULTIVITAMINS WITH MINERALS, THERAPEUTIC TABLET PO SCH (08:17)
[2017-03-05] MEDS: LORATADINE 10 MG TABLET PO SCH ×2 (08:17→08:41)
[2017-03-05] MEDS: GABAPENTIN 300 MG CAPSULE PO SCH ×3 (08:17→16:31)
[2017-03-05 08:29] VITALS: BP 98/64
[2017-03-05 16:05] VITALS: BP 112/65
[2017-03-06] MEDS: LEVOTHYROXINE SODIUM 25 MCG TABLET PO SCH (06:00)
[2017-03-06] MEDS: MULTIVITAMINS WITH MINERALS, THERAPEUTIC TABLET PO SCH (08:31)
[2017-03-06] MEDS: GABAPENTIN 300 MG CAPSULE PO SCH ×3 (08:31→16:34)
[2017-03-06] MEDS: LORATADINE 10 MG TABLET PO SCH (08:31)
[2017-03-06 16:12] VITALS: BP 120/60
[2017-03-07 00:52] VITALS: BP 101/71
[2017-03-07] MEDS: LEVOTHYROXINE SODIUM 25 MCG TABLET PO SCH (06:02)
[2017-03-07] MEDS: MULTIVITAMINS WITH MINERALS, THERAPEUTIC TABLET PO SCH (08:24)
[2017-03-07] MEDS: LORATADINE 10 MG TABLET PO SCH (08:24)
[2017-03-07] MEDS: GABAPENTIN 300 MG CAPSULE PO SCH ×3 (08:24→16:34)
[2017-03-07 16:05] VITALS: BP 111/70
[2017-03-08] MEDS: LEVOTHYROXINE SODIUM 25 MCG TABLET PO SCH (06:33)
[2017-03-08] MEDS: LORATADINE 10 MG TABLET PO SCH (08:22)
[2017-03-08] MEDS: GABAPENTIN 300 MG CAPSULE PO SCH ×3 (08:22→16:37)
[2017-03-08] MEDS: MULTIVITAMINS WITH MINERALS, THERAPEUTIC TABLET PO SCH (08:22)
[2017-03-08 16:09] VITALS: BP 109/62
[2017-03-09] MEDS: LEVOTHYROXINE SODIUM 25 MCG TABLET PO SCH (06:53)
[2017-03-09] MEDS: GABAPENTIN 300 MG CAPSULE PO SCH ×3 (08:07→16:15)
[2017-03-09] MEDS: MULTIVITAMINS WITH MINERALS, THERAPEUTIC TABLET PO SCH (08:07)
[2017-03-09] MEDS: LORATADINE 10 MG TABLET PO SCH (08:10)
[2017-03-09 16:12] VITALS: BP 118/61
[2017-03-10] MEDS: LEVOTHYROXINE SODIUM 25 MCG TABLET PO SCH (06:51)
[2017-03-10] MEDS: GABAPENTIN 300 MG CAPSULE PO SCH ×3 (08:14→16:16)
[2017-03-10] MEDS: LORATADINE 10 MG TABLET PO SCH (08:14)
[2017-03-10] MEDS: MULTIVITAMINS WITH MINERALS, THERAPEUTIC TABLET PO SCH (08:14)
[2017-03-10 16:17] VITALS: BP 118/60
[2017-03-11 02:58] VITALS: BP 117/73
[2017-03-11] MEDS: LEVOTHYROXINE SODIUM 25 MCG TABLET PO SCH (05:57)
[2017-03-11] MEDS: GABAPENTIN 300 MG CAPSULE PO SCH ×3 (08:25→16:35)
[2017-03-11] MEDS: MULTIVITAMINS WITH MINERALS, THERAPEUTIC TABLET PO SCH (08:25)
[2017-03-11] MEDS: LORATADINE 10 MG TABLET PO SCH (08:26)
[2017-03-11 16:03] VITALS: BP 116/64
[2017-03-12] MEDS: LEVOTHYROXINE SODIUM 25 MCG TABLET PO SCH (05:48)
[2017-03-12] MEDS: LORATADINE 10 MG TABLET PO SCH (08:38)
[2017-03-12] MEDS: MULTIVITAMINS WITH MINERALS, THERAPEUTIC TABLET PO SCH (08:38)
[2017-03-12] MEDS: GABAPENTIN 300 MG CAPSULE PO SCH ×3 (08:38→16:33)
[2017-03-13] MEDS: LEVOTHYROXINE SODIUM 25 MCG TABLET PO SCH (06:32)
[2017-03-13] MEDS: GABAPENTIN 300 MG CAPSULE PO SCH ×3 (08:28→16:36)
[2017-03-13] MEDS: MULTIVITAMINS WITH MINERALS, THERAPEUTIC TABLET PO SCH (08:28)
[2017-03-13] MEDS: LORATADINE 10 MG TABLET PO SCH (08:29)
[2017-03-14] MEDS: LEVOTHYROXINE SODIUM 25 MCG TABLET PO SCH (05:38)
[2017-03-14] MEDS: LORATADINE 10 MG TABLET PO SCH (08:17)
[2017-03-14] MEDS: MULTIVITAMINS WITH MINERALS, THERAPEUTIC TABLET PO SCH (08:17)
[2017-03-14] MEDS: GABAPENTIN 300 MG CAPSULE PO SCH ×3 (08:17→16:29)
[2017-03-15] MEDS: LEVOTHYROXINE SODIUM 25 MCG TABLET PO SCH (07:22)
[2017-03-15] MEDS: LORATADINE 10 MG TABLET PO SCH (08:17)
[2017-03-15] MEDS: MULTIVITAMINS WITH MINERALS, THERAPEUTIC TABLET PO SCH (08:17)
[2017-03-15] MEDS: GABAPENTIN 300 MG CAPSULE PO SCH ×3 (08:17→16:39)
[2017-03-16] MEDS: LEVOTHYROXINE SODIUM 25 MCG TABLET PO SCH (06:52)
[2017-03-16] MEDS: GABAPENTIN 300 MG CAPSULE PO SCH ×3 (08:15→16:21)
[2017-03-16] MEDS: MULTIVITAMINS WITH MINERALS, THERAPEUTIC TABLET PO SCH (08:15)
[2017-03-16] MEDS: LORATADINE 10 MG TABLET PO SCH (08:26)
[2017-03-16 16:11] VITALS: BP 108/76
[2017-03-17] MEDS: LEVOTHYROXINE SODIUM 25 MCG TABLET PO SCH ×2 (06:32→07:49)
[2017-03-17] MEDS: MULTIVITAMINS WITH MINERALS, THERAPEUTIC TABLET PO SCH (08:17)
[2017-03-17] MEDS: GABAPENTIN 300 MG CAPSULE PO SCH ×3 (08:17→16:15)
[2017-03-17] MEDS: LORATADINE 10 MG TABLET PO SCH (08:17)
[2017-03-18] MEDS: GABAPENTIN 300 MG CAPSULE PO SCH ×3 (08:17→16:34)
[2017-03-18] MEDS: MULTIVITAMINS WITH MINERALS, THERAPEUTIC TABLET PO SCH (08:17)
[2017-03-18] MEDS: LORATADINE 10 MG TABLET PO SCH (08:18)
[2017-03-18] MEDS: RisperiDONE MICROSPHERES 50 MG/2 ML SYRINGE IM SCH (08:30)
[2017-03-19] MEDS: LEVOTHYROXINE SODIUM 25 MCG TABLET PO SCH (05:39)
[2017-03-19] MEDS: MULTIVITAMINS WITH MINERALS, THERAPEUTIC TABLET PO SCH (08:11)
[2017-03-19] MEDS: GABAPENTIN 300 MG CAPSULE PO SCH ×3 (08:11→16:24)
[2017-03-19] MEDS: LORATADINE 10 MG TABLET PO SCH (08:11)
[2017-03-19 08:45] VITALS: BP 109/76
[2017-03-20] MEDS: LEVOTHYROXINE SODIUM 25 MCG TABLET PO SCH (06:38)
[2017-03-20] MEDS: GABAPENTIN 300 MG CAPSULE PO SCH ×3 (08:36→16:57)
[2017-03-20] MEDS: MULTIVITAMINS WITH MINERALS, THERAPEUTIC TABLET PO SCH (08:36)
[2017-03-20] MEDS: LORATADINE 10 MG TABLET PO SCH (09:00)
[2017-03-20] MEDS ORDERED: TUBERCULIN, PURIFIED PROTEIN DERIVATIVE 5 TU/0.1 ML SYG ID ONE (09:45)
[2017-03-20] MEDS ORDERED: LORA5SOL7 PO (13:07)
== END 2017-03-20 16:45 | DRG 885 ==
LOC: B2X 15:34
PROVIDERS: ADMIT Psychiatry & Neurology Child & Adolescent Psychiatry
DX: F20.0 Paranoid schizophrenia (principal); E03.9 Hypothyroidism, unspecified; E11.9 Type 2 diabetes mellitus without complications; E78.5 Hyperlipidemia, unspecified; Z88.1 Allergy status to other antibiotic agents; R10.13 Epigastric pain; Z28.21 Immunization not carried out because of patient refusal; Z79.899 Other long term (current) drug therapy
CPT/HCPCS: 82962; 83036; 84443; 87081; J1200; J1630; J2060; J2794